=== PATIENT | female | born 1995 | race African-American/Black ===

== ENCOUNTER 2017-11-07 10:48 | Emergency (ER) | payer OTHER ==
[~2017-11-07] VITALS: Ht 180.3 cm; Wt 52.3 kg
[2017-11-07 11:18] LABS: APPEARANCE SL.HAZY ((CLEAR)); BILIRUBIN NEGATIVE; BLOOD NEGATIVE; COLOR YELLOW ((YELLOW)); GLUCOSE (STRIP) NEGATIVE; KETONES NEGATIVE; LEUKOCYTES TRACE; NITRITE NEGATIVE; PROTEIN (STRIP) 30; SPECIFIC GRAVITY 1.014 (1.000-1.030); UROBILINOGEN 0.2 MG/DL (0.2-1.0)
[2017-11-07 11:19] LABS: HEMATOCRIT 37.1 % (36.0-46.0); HEMOGLOBIN 13.3 G/DL (11.9-15.5); MCH 30.9 PG (29.0-34.0); MCHC 35.8 G/DL (30.0-36.0); MCV 86.3 FL (83-99); PLATELET COUNT 233 K/uL (156-360); RBC DIS.WIDTH-CV 11.9 % (11.8-14.6); RBC DIS.WIDTH-SD 37.9 % (39-53); WHITE BLOOD COUNT 5.5 K/uL (4.1-10.2)
[2017-11-07 11:23] LABS: BACTERIA RARE /HPF; EPITHELIAL CELLS 2+ /HPF; MUCUS TRACE /LPF; RED BLOOD CELLS 0-5 /HPF (0-5); UCUL ADDED? NO; WHITE BLOOD CELLS 0-5 /HPF (0-5)
[2017-11-07 11:35] LABS: ALBUMIN 4.5 g/dL (3.2-4.8); CHLORIDE 108 mEq/L (99-109); POTASSIUM 3.6 mEq/L (3.7-5.4); SODIUM 141 mEq/L (136-147)
[2017-11-07 11:37] LABS: GLUCOSE 89 mg/dL (70-99)
[2017-11-07 11:38] LABS: TOTAL PROTEIN 7.6 g/dL (6.4-8.3)
[2017-11-07 11:39] LABS: TOTAL BILIRUBIN 0.7 mg/dL (0.0-1.0)
[2017-11-07 11:41] LABS: ALKALINE PHOSPHATASE 68 IU/L (3-129); CREATININE 0.8 mg/dL (0.6-1.3)
[2017-11-07 11:42] LABS: UREA NITROGEN (BUN) 10 mg/dL (9-23)
[2017-11-07 11:43] LABS: AST (GOT) 12 IU/L (2-34)
[2017-11-07 11:44] LABS: ALT (GPT) 9 IU/L (3-49); LIPASE 12 U/L (1.0-51.0)
[2017-11-07 11:52] LABS: QUANTITATIVE HCG 7318.4 MIU/ML
[2017-11-07 11:55] LABS: GFR ESTIMATE (CALCULATED) > 59 mL/min/
[2017-11-07] MEDS ORDERED: ZOFRAN4 MG PO (15:46)
[2017-11-07 16:33] VITALS: BP 109/68
== END 2017-11-07 16:35 | disposition home or self-care (01) ==
LOC: EME 10:48
DX: O21.9 Vomiting of pregnancy, unspecified (principal); Z3A.01 Less than 8 weeks gestation of pregnancy; O26.891 Other specified pregnancy related conditions, first trimester; R35.0 Frequency of micturition; R10.30 Lower abdominal pain, unspecified; Z88.0 Allergy status to penicillin
CPT/HCPCS: 76801; 80053; 81003; 83690; 84702; 85027; 99281; 99284

== ENCOUNTER 2017-11-20 12:48 | Emergency (ER) | payer OTHER ==
[~2017-11-20] VITALS: Ht 180.3 cm; Wt 52.7 kg
[~2017-11-20 12:48] MED LIST: ZOFRAN4 MG PO
[2017-11-20 13:14] LABS: HEMATOCRIT 34.9 % (36.0-46.0); HEMOGLOBIN 12.7 G/DL (11.9-15.5); MCH 31.4 PG (29.0-34.0); MCHC 36.4 G/DL (30.0-36.0); MCV 86.2 FL (83-99); PLATELET COUNT 241 K/uL (156-360); RBC DIS.WIDTH-CV 11.9 % (11.8-14.6); RBC DIS.WIDTH-SD 37.3 % (39-53); RED BLOOD COUNT 4.05 M/uL (3.80-5.20); WHITE BLOOD COUNT 9.3 K/uL (4.1-10.2)
[2017-11-20 13:20] LABS: CHLORIDE 107 mEq/L (99-109); POTASSIUM 3.9 mEq/L (3.7-5.4); SODIUM 139 mEq/L (136-147)
[2017-11-20 13:21] LABS: GLUCOSE 80 mg/dL (70-99)
[2017-11-20 13:25] LABS: CREATININE 0.7 mg/dL (0.6-1.3); GFR ESTIMATE (CALCULATED) > 59 mL/min/
[2017-11-20 13:26] LABS: UREA NITROGEN (BUN) 7 mg/dL (9-23)
[2017-11-20 17:32] LABS: APPEARANCE CLEAR ((CLEAR)); BILIRUBIN NEGATIVE; BLOOD NEGATIVE; COLOR YELLOW ((YELLOW)); GLUCOSE (STRIP) NEGATIVE; KETONES 80; LEUKOCYTES NEGATIVE; NITRITE NEGATIVE; PROTEIN (STRIP) NEGATIVE; SPECIFIC GRAVITY 1.013 (1.000-1.030); UCUL ADDED? NO; UROBILINOGEN 0.2 MG/DL (0.2-1.0)
[2017-11-20] MEDS ORDERED: PHENERGAN25 MG PR (17:37)
[2017-11-20] MEDS ORDERED: ZOFRAN ODT4 MG PO (17:37)
[2017-11-20 18:01] VITALS: BP 100/65
== END 2017-11-20 18:02 | disposition home or self-care (01) ==
LOC: EXP 12:48 → EME 12:48 → EXP 18:02
PROVIDERS: Physician Assistant
DX: O21.9 Vomiting of pregnancy, unspecified (principal); R55 Syncope and collapse; Z3A.01 Less than 8 weeks gestation of pregnancy; Z88.0 Allergy status to penicillin
CPT/HCPCS: 76801; 80048; 81003; 85027; 93005; 99281; 99284; J2405; J7030

== ENCOUNTER 2017-12-02 14:33 | Emergency (ER) | payer OTHER ==
[~2017-12-02] VITALS: Ht 180.3 cm; Wt 50.8 kg
[~2017-12-02 14:33] MED LIST changes: +PHENERGAN25 MG PR; +ZOFRAN ODT4 MG PO
[2017-12-02 15:46] LABS: HEMOGLOBIN 12.5 G/DL (11.9-15.5); MCH 31.3 PG (29.0-34.0); MCHC 36.8 G/DL (30.0-36.0); PLATELET COUNT 239 K/uL (156-360); RBC DIS.WIDTH-CV 11.9 % (11.8-14.6); RBC DIS.WIDTH-SD 36.2 % (39-53); WHITE BLOOD COUNT 8.4 K/uL (4.1-10.2)
[2017-12-02 15:55] LABS: CHLORIDE 105 mEq/L (99-109); POTASSIUM 3.8 mEq/L (3.7-5.4); SODIUM 137 mEq/L (136-147)
[2017-12-02 15:57] LABS: GLUCOSE 93 mg/dL (70-99); TOTAL PROTEIN 6.9 g/dL (6.4-8.3)
[2017-12-02 15:59] LABS: TOTAL BILIRUBIN 0.6 mg/dL (0.0-1.0)
[2017-12-02 16:01] LABS: ALKALINE PHOSPHATASE 53 IU/L (3-129); CREATININE 0.7 mg/dL (0.6-1.3); GFR ESTIMATE (CALCULATED) > 59 mL/min/
[2017-12-02 16:03] LABS: AST (GOT) 13 IU/L (2-34); UREA NITROGEN (BUN) 9 mg/dL (9-23)
[2017-12-02 16:04] LABS: ALT (GPT) 12 IU/L (3-49)
[2017-12-02 18:07] LABS: APPEARANCE CLEAR ((CLEAR)); BILIRUBIN NEGATIVE; BLOOD NEGATIVE; COLOR YELLOW ((YELLOW)); GLUCOSE (STRIP) NEGATIVE; KETONES 20; LEUKOCYTES NEGATIVE; NITRITE NEGATIVE; PROTEIN (STRIP) NEGATIVE; SPECIFIC GRAVITY 1.016 (1.000-1.030); UCUL ADDED? NO; UROBILINOGEN 0.2 MG/DL (0.2-1.0)
[2017-12-02 20:10] VITALS: BP 108/59
[2017-12-04] MEDS ORDERED: BONJESTA ER 201 EACH PO (18:05)
== END 2017-12-02 20:10 | disposition home or self-care (01) ==
LOC: EME 14:33
PROVIDERS: Physician Assistant
DX: O21.0 Mild hyperemesis gravidarum (principal); Z3A.08 8 weeks gestation of pregnancy; Z88.0 Allergy status to penicillin
CPT/HCPCS: 80053; 81003; 85027; 99281; 99285; J2405; J7030

== ENCOUNTER 2017-12-13 18:19 | Emergency (ER) | payer OTHER ==
[~2017-12-13] VITALS: Ht 177.8 cm; Wt 50.0 kg
[~2017-12-13 18:19] MED LIST changes: +BONJESTA ER 201 EACH PO
[2017-12-13 18:57] LABS: HEMOGLOBIN 13.4 G/DL (11.9-15.5); MCH 31.5 PG (29.0-34.0); MCHC 37.2 G/DL (30.0-36.0); MCV 84.5 FL (83-99); PLATELET COUNT 247 K/uL (156-360); RBC DIS.WIDTH-CV 11.9 % (11.8-14.6); RBC DIS.WIDTH-SD 36.4 % (39-53); RED BLOOD COUNT 4.26 M/uL (3.80-5.20); WHITE BLOOD COUNT 8.9 K/uL (4.1-10.2)
[2017-12-13 19:06] LABS: ALBUMIN 4.2 g/dL (3.2-4.8); CHLORIDE 105 mEq/L (99-109); SODIUM 137 mEq/L (136-147)
[2017-12-13 19:08] LABS: GLUCOSE 76 mg/dL (70-99); TOTAL PROTEIN 7.4 g/dL (6.4-8.3)
[2017-12-13 19:10] LABS: TOTAL BILIRUBIN 0.8 mg/dL (0.0-1.0)
[2017-12-13 19:12] LABS: ALKALINE PHOSPHATASE 56 IU/L (3-129); CREATININE 0.8 mg/dL (0.6-1.3); GFR ESTIMATE (CALCULATED) > 59 mL/min/
[2017-12-13 19:13] LABS: AST (GOT) 13 IU/L (2-34); UREA NITROGEN (BUN) 6 mg/dL (9-23)
[2017-12-13 19:15] LABS: ALT (GPT) 9 IU/L (3-49)
[2017-12-13] MEDS ORDERED: ZOFRAN4 MG PO (19:58)
[2017-12-13 20:26] LABS: APPEARANCE CLEAR ((CLEAR)); BILIRUBIN NEGATIVE; BLOOD NEGATIVE; COLOR YELLOW ((YELLOW)); GLUCOSE (STRIP) NEGATIVE; KETONES 80; LEUKOCYTES TRACE; NITRITE NEGATIVE; PROTEIN (STRIP) NEGATIVE; SPECIFIC GRAVITY 1.014 (1.000-1.030); UROBILINOGEN 0.2 MG/DL (0.2-1.0)
[2017-12-13 20:37] LABS: BACTERIA RARE /HPF; EPITHELIAL CELLS 1+ /HPF; MUCUS TRACE /LPF; RED BLOOD CELLS 0-5 /HPF (0-5); UCUL ADDED? NO; WHITE BLOOD CELLS 0-5 /HPF (0-5)
[2017-12-13 21:11] VITALS: BP 91/56
[2017-12-15] MEDS ORDERED: PRENATAL TABLE1 EAC3 PO (11:02)
== END 2017-12-13 21:11 | disposition home or self-care (01) ==
LOC: EME 18:19
PROVIDERS: Physician Assistant
DX: O21.0 Mild hyperemesis gravidarum (principal); Z3A.10 10 weeks gestation of pregnancy; Z88.0 Allergy status to penicillin
CPT/HCPCS: 80053; 81003; 85027; 99281; 99284; J2405; J7030

== ENCOUNTER 2017-12-17 04:57 | Observation (INO) | payer OTHER ==
[~2017-12-17] VITALS: Ht 177.8 cm; Wt 48.1 kg
[~2017-12-17 04:57] MED LIST changes: +PRENATAL TABLE1 EAC3 PO
[2017-12-17 05:50] LABS: HEMATOCRIT 35.6 % (36.0-46.0); HEMOGLOBIN 13.3 G/DL (11.9-15.5); MCH 31.7 PG (29.0-34.0); MCHC 37.4 G/DL (30.0-36.0); MCV 84.8 FL (83-99); PLATELET COUNT 244 K/uL (156-360); RBC DIS.WIDTH-CV 11.9 % (11.8-14.6); RBC DIS.WIDTH-SD 36.5 % (39-53); WHITE BLOOD COUNT 8.8 K/uL (4.1-10.2)
[2017-12-17 06:00] LABS: ALBUMIN 4.2 g/dL (3.2-4.8); CHLORIDE 105 mEq/L (99-109); POTASSIUM 3.6 mEq/L (3.7-5.4); SODIUM 138 mEq/L (136-147)
[2017-12-17 06:03] LABS: GLUCOSE 77 mg/dL (70-99); TOTAL PROTEIN 7.6 g/dL (6.4-8.3)
[2017-12-17 06:05] LABS: TOTAL BILIRUBIN 0.8 mg/dL (0.0-1.0)
[2017-12-17 06:06] LABS: ALKALINE PHOSPHATASE 60 IU/L (3-129); CREATININE 0.8 mg/dL (0.6-1.3); GFR ESTIMATE (CALCULATED) > 59 mL/min/
[2017-12-17 06:07] LABS: UREA NITROGEN (BUN) 10 mg/dL (9-23)
[2017-12-17 06:08] LABS: AST (GOT) 13 IU/L (2-34)
[2017-12-17 06:09] LABS: ALT (GPT) 10 IU/L (3-49)
[2017-12-17] MEDS ORDERED: PHENADOZ25 MG PR (07:23)
[2017-12-17 11:27] VITALS: BP 108/56
[2017-12-17 15:49] VITALS: BP 107/56
[2017-12-17 20:24] VITALS: BP 97/53
[2017-12-18 01:20] VITALS: BP 114/62
[2017-12-18 07:22] VITALS: BP 86/51
[2017-12-18 11:18] VITALS: BP 102/52
[2017-12-18] MEDS ORDERED: PANTOPRAZOLE SO40 MG PO (11:20)
[2017-12-18] MEDS ORDERED: METOCLOPRAMIDE10 MG PO (11:20)
[2017-12-18] MEDS ORDERED: ONDANSETRON ODT4 MG PO (11:20)
[2017-12-18] MEDS ORDERED: VITAMIN B-650 MG PO (11:20)
[2017-12-18] MEDS ORDERED: PROMETHAZINE HC25 M1 PO (11:20)
== END 2017-12-18 14:20 | disposition home or self-care (01) ==
LOC: EME 04:57 → 2EAST 06:42 → EDOF 06:42 → 2EAST 06:42 → ENRESERV 07:18 → 2EAST 11:18
PROVIDERS: Emergency Medicine
DX: O21.1 Hyperemesis gravidarum with metabolic disturbance (principal); E86.0 Dehydration; Z3A.11 11 weeks gestation of pregnancy
CPT/HCPCS: 76801; 80053; 81003; 85027; 99281; 99285; C9113; G0378; J2765; J3411; J3415; J3480; J7030; J7050; Q0169